=== PATIENT | male | born 1955 | race Caucasian/White ===

== ENCOUNTER 2020-12-14 09:00 | Inpatient (IN) ==
[2020-12-14] MEDS ORDERED: GLUCAGON 1 MG VIAL IM PRN (10:18)
[2020-12-14] MEDS ORDERED: DEXTROSE 50% 25 GM/50 ML VIAL IV PRN (10:18)
[2020-12-14 11:10] LABS: Basophils % 0.3 % (0.0-0.8); Eosinophils # 0.2 10*3/uL (0.0-0.87); Eosinophils % 3.1 % (0.00-10.9); Hematocrit 40.9 VOL% (42.0-52.0); Hemoglobin 13.5 GM/DL (14.0-18.0); Immature Granulocytes % 0.3 %; Immature Granulocytes Absolute 0.02 #; Lymphocytes # 1.2 10*3/uL (1.4-4.0); Lymphocytes % 17.7 % (21.2-54.2); Mean Corpuscular Volume 92.3 FL (87-102); Mean Platelet Volume 11.1 FL (9.6-12.0); Monocytes % 9.1 % (1.7-12.7); Neutrophils % 69.5 % (38.7-73.9); Platelet Count 255 T/CUMM (130-400); Red Blood Count 4.43 MC/CUMM (3.8-5.5); White Blood Count 6.7 T/CUMM (4-12)
[2020-12-14 11:31] LABS: Albumin 3.5 G/DL (3.4-5.0); Bilirubin,Total 0.4 MG/DL (0.2-1.0); Calcium 8.9 MG/DL (8.5-10.1); Osmolality,Calculated 279.5 MOS/KG (273-304); Potassium 3.3 MMOL/L (3.5-5.1); Total Protein 7.1 G/DL (6.4-8.2)
[2020-12-14] MEDS: SODIUM CHLORIDE 0.9% 1,000 ML IV SCH (11:45)
[2020-12-14 13:04] LABS: ABG Base Excess 4.8 MMOL/L (-2.5-2.5); ABG HCO3 28.6 MMOL/L (20-26); ABG Oxygen Saturation 93.9 % (95-100); ABG PCO2 39.8 MM HG (35-48); ABG PH 7.475 (7.35-7.45); ABG PO2 70.4 MM HG (80-95); ABG TCO2 29.9 MMOL/L (23-27)
[2020-12-14] MEDS ORDERED: NITROGLYCERIN SL 0.4 MG TABLET SL PRN (13:59)
[2020-12-14] MEDS ORDERED: CLORAZEPATE 3.75 MG TABLET PO PRN (13:59)
[2020-12-14] MEDS ORDERED: MORPHINE 4 MG/1 ML VIAL IV PRN (13:59)
[2020-12-14] MEDS ORDERED: ZALEPLON 5 MG CAPSULE PO PRN (14:04)
[2020-12-14] MEDS: CHLORHEXIDINE 4% SOLN 118 ML BOTTLE TOP SCH ×2 (15:31→20:36)
[2020-12-14] MEDS: CHLORHEXIDINE 0.12% ORAL RINSE 60 ML BOTTLE SWISH/SPIT SCH ×2 (15:31→20:36)
[2020-12-15] MEDS ORDERED: PAPAVERINE 60 MG/2 ML VIAL ONE (04:22)
[2020-12-15] MEDS ORDERED: VANCOMYCIN 1,000 MG VIAL ONE (04:23)
[2020-12-15] MEDS ORDERED: VANCOMYCIN 500 MG VIAL ONE (04:23)
[2020-12-15] MEDS ORDERED: CEFUROXIME INJ 1,500 MG in SODIUM CHLORIDE 0.9% 100 ML IV ONE (05:00)
[2020-12-15] MEDS: CHLORHEXIDINE 0.12% ORAL RINSE 60 ML BOTTLE SWISH/SPIT SCH ×3 (05:19→20:19)
[2020-12-15] MEDS: CHLORHEXIDINE 4% SOLN 118 ML BOTTLE TOP SCH ×2 (05:19→13:16)
[2020-12-15] MEDS ORDERED: MIDAZOLAM 10 MG/2 ML VIAL ONE ×2 (05:33→09:07)
[2020-12-15] MEDS ORDERED: SUFentanil 250 MCG/5 ML AMP ONE (05:34)
[2020-12-15] MEDS ORDERED: LACTATED RINGERS 1,000 ML IV ONE (05:46)
[2020-12-15] MEDS ORDERED: SODIUM CHLORIDE 0.9% 1,000 ML IV ONE (05:46)
[2020-12-15] MEDS ORDERED: SODIUM CHLORIDE 0.9% 250 ML IV ONE (05:46)
[2020-12-15] MEDS ORDERED: VECURONIUM 10 MG VIAL IV ONE ×4 (05:47→10:52)
[2020-12-15] MEDS ORDERED: ETOMIDATE 40 MG/20 ML VIAL IV ONE (05:47)
[2020-12-15] MEDS ORDERED: CALCIUM CHLORIDE 1,000 MG/10 ML VIAL IV ONE (05:47)
[2020-12-15] MEDS ORDERED: PHENYLEPHRINE 1 MG/10 ML SYRINGE IV ONE (05:48)
[2020-12-15] MEDS ORDERED: AMINOCAPROIC ACID 5,000 MG/20 ML VIAL ONE ×4 (05:48)
[2020-12-15] MEDS ORDERED: PHENYLEPHRINE DRIP 20 MG/250 ML PREMIX IV ONE (05:48)
[2020-12-15] MEDS ORDERED: HEPARIN/NACL 0.9% 2 UNITS/ML 500 ML IV ONE (05:48)
[2020-12-15] MEDS ORDERED: ePHEDrine 50 MG/ML VIAL ONE (07:42)
[2020-12-15] MEDS ORDERED: SODIUM BICARBONATE 50 MEQ/50 ML VIAL IV ONE ×2 (07:59→11:43)
[2020-12-15] MEDS ORDERED: PHENYLEPHRINE DRIP 40 MG/250 ML PREMIX IV ONE (07:59)
[2020-12-15] MEDS ORDERED: NITROPRUSSIDE 50 MG/2 ML VIAL ONE (07:59)
[2020-12-15] MEDS ORDERED: POTASSIUM CHLORIDE RIDER 100 ML IV ONE (07:59)
[2020-12-15] MEDS ORDERED: CALCIUM CHLORIDE 1,000 MG/10 ML SYRINGE IV ONE (08:00)
[2020-12-15] MEDS ORDERED: ALBUMIN 5% 12.5 GM/250 ML VIAL IV ONE (08:00)
[2020-12-15 08:12] LABS: ABG Base Excess 2.2 MMOL/L (-2.5-2.5); ABG HCO3 26.7 MMOL/L (20-26); ABG Oxygen Saturation 99.1 % (95-100); ABG PCO2 41.2 MM HG (35-48); ABG PH 7.429 (7.35-7.45); ABG TCO2 27.9 MMOL/L (23-27); Glucose Heart Surgery 121 MG/DL (74-106); Hemoglobin Heart Surgery 12.7 G/DL (14.0-18.0); Ionized Calcium Arterial 1.05 MMOL/L (1.21-1.46); PCO2 Patient Temp Arterial 41.2 MMHG; PH Patient Temp Arterial 7.429; Patient Temperature 37 CELCIUS; Potassium Heart/CVR 3.2 MMOL/L (3.5-5.1); Sodium Heart/CVR 138 MMOL/L (135-145)
[2020-12-15 08:24] LABS: Bilirubin,Urine Negative (Negative); Blood, Urine Negative (Negative); Glucose,Urine (UA) Negative (Negative); Ketones,Urine Negative (Negative); Mucus,Urine Occasional /LPF (Occasional); Nitrite,Urine Negative (Negative); Protein,Urine Negative; RBC,Urine 2 /HPF (0-4); Squamous Epithelial Cell,Urine Occasional /HPF (0-10); Urine Appearance CLEAR (Clear); Urine Color Yellow (Yellow); Urine Specific Gravity 1.013 (1.001-1.035); Urine Urobilinogen < 2.0 EU/DL (0.2-1.0); WBC,Urine 1 /HPF (0-6)
[2020-12-15 09:39] LABS: Hematocrit Heart Surgery 30.8 PERCENT (42-52); PCO2 Patient Temp Venous 39.6 MM HG; PH Patient Temp Venous 7.462; PO2 Patient Temp Venous 37.9 MM HG; Potassium Heart/CVR 3.4 MMOL/L (3.5-5.1); VBG Base Excess 4.3 MEQ/L (0-4); VBG HCO3 27.9 MEQ/L (24-28); VBG Oxygen Saturation 76.4 %; VBG PCO2 41.6 MMHG (41-51); VBG PH 7.447; VBG PO2 40.6 MMHG (17-40); VBG Total CO2 26.2 MMOL/L
[2020-12-15 10:13] LABS: Hemoglobin Heart Surgery 10.2 G/DL (14.0-18.0); PCO2 Patient Temp Venous 33.8 MM HG; PH Patient Temp Venous 7.549; PO2 Patient Temp Venous 35.3 MM HG; Potassium Heart/CVR 3.5 MMOL/L (3.5-5.1); VBG HCO3 29.6 MEQ/L (24-28); VBG Oxygen Saturation 79.8 %; VBG PCO2 38.5 MMHG (41-51); VBG PH 7.503; VBG PO2 43.6 MMHG (17-40); VBG Total CO2 30.7 MMOL/L
[2020-12-15 10:40] LABS: Hematocrit Heart Surgery 31.9 PERCENT (42-52); Hemoglobin Heart Surgery 10.3 G/DL (14.0-18.0); PCO2 Patient Temp Venous 32.1 MM HG; PH Patient Temp Venous 7.536; PO2 Patient Temp Venous 35.1 MM HG; Potassium Heart/CVR 3.8 MMOL/L (3.5-5.1); VBG Base Excess 4.8 MEQ/L (0-4); VBG HCO3 28.5 MEQ/L (24-28); VBG Oxygen Saturation 81.6 %; VBG PCO2 37.1 MMHG (41-51); VBG PH 7.49; VBG PO2 43.3 MMHG (17-40); VBG Total CO2 25.6 MMOL/L
[2020-12-15] MEDS ORDERED: ESMOLOL 100 MG/10 ML VIAL IV ONE (10:52)
[2020-12-15] MEDS ORDERED: SEVOFLURANE 1 UNIT/15 MINUTE INH ONE (10:52)
[2020-12-15] MEDS ORDERED: THROMBIN TOPICAL (RECOMBINANT) 5,000 UNIT VIAL TOP ONE (11:38)
[2020-12-15] MEDS ORDERED: methylPREDNISolone SOD SUC 1,000 MG/8 ML VIAL ONE (11:42)
[2020-12-15] MEDS ORDERED: MAGNESIUM SULFATE 5 GM/10 ML VIAL IV ONE (11:42)
[2020-12-15] MEDS ORDERED: ALBUMIN 25% 25 GM/100 ML VIAL IV ONE (11:42)
[2020-12-15] MEDS ORDERED: MANNITOL 100 GM/500 ML BAG IV ONE (11:42)
[2020-12-15] MEDS ORDERED: DEXTROSE 5% KCL 20 MEQ 40 MEQ/2,000 ML BAG IV ONE (11:42)
[2020-12-15] MEDS ORDERED: LIDOCAINE 2% 5 ML VIAL ONE (11:42)
[2020-12-15] MEDS ORDERED: PROTAMINE SULFATE 50 MG/5 ML VIAL IV ONE (11:43)
[2020-12-15] MEDS ORDERED: FUROSEMIDE 20 MG/2 ML VIAL ONE (11:43)
[2020-12-15] MEDS ORDERED: HEPARIN 10,000 UNIT/10 ML VIAL ONE (11:43)
[2020-12-15] MEDS ORDERED: PROTAMINE SULFATE 250 MG/25 ML VIAL IV ONE (11:43)
[2020-12-15 11:51] LABS: ABG Base Excess 1.5 MMOL/L (-2.5-2.5); ABG HCO3 25.7 MMOL/L (20-26); ABG Oxygen Saturation 99.6 % (95-100); ABG PCO2 38.8 MM HG (35-48); Glucose Heart Surgery 215 MG/DL (74-106); Hematocrit Heart Surgery 33.8 PERCENT (42-52); Ionized Calcium Arterial 1.11 MMOL/L (1.21-1.46); PCO2 Patient Temp Arterial 38.8 MMHG; Patient Temperature 37 CELCIUS; Potassium Heart/CVR 3.1 MMOL/L (3.5-5.1); Sodium Heart/CVR 139 MMOL/L (135-145)
[2020-12-15] MEDS ORDERED: MORPHINE 10 MG/1 ML VIAL IV PRN (12:05)
[2020-12-15] MEDS ORDERED: MIDAZOLAM 2 MG/2 ML VIAL IV PRN (12:05)
[2020-12-15] MEDS ORDERED: MAGNESIUM SULF RIDER 2 GM in PREMIX 1 EACH IV PRN (12:05)
[2020-12-15] MEDS ORDERED: INSULIN REGULAR 100 UNIT/ML IV PRN (12:05)
[2020-12-15] MEDS ORDERED: CALCIUM CHLORIDE 1,000 MG/10 ML SYRINGE IV PRN (12:05)
[2020-12-15] MEDS ORDERED: MAGNESIUM SULF RIDER 4 GM in PREMIX 1 EACH IV PRN (12:05)
[2020-12-15] MEDS ORDERED: PHENYLEPHRINE DRIP 40 MG/250 ML PREMIX IV PRN (12:05)
[2020-12-15] MEDS ORDERED: SODIUM CHLORIDE 0.45% 1,000 ML IV SCH ×2 (12:05)
[2020-12-15] MEDS ORDERED: MIDAZOLAM 10 MG/2 ML VIAL IV PRN (12:05)
[2020-12-15] MEDS ORDERED: DEXTROSE 50% 25 GM/50 ML VIAL IV PRN ×2 (12:05)
[2020-12-15] MEDS ORDERED: INSULIN REGULAR DRIP 100 ML IV SCH (12:05)
[2020-12-15] MEDS ORDERED: ONDANSETRON 4 MG/2 ML VIAL IV PRN (12:05)
[2020-12-15] MEDS ORDERED: INSULIN REGULAR 100 UNIT/ML IV ONE (12:05)
[2020-12-15] MEDS ORDERED: NITROPRUSSIDE 100 MG in DEXTROSE 5% 250 ML IV PRN (12:05)
[2020-12-15] MEDS ORDERED: CHLORHEXIDINE 4% SOLN 118 ML BOTTLE TOP PRN (12:05)
[2020-12-15] MEDS ORDERED: LACTATED RINGERS 250 ML IV PRN (12:05)
[2020-12-15] MEDS ORDERED: VECURONIUM 10 MG VIAL IV PRN ×2 (12:05)
[2020-12-15] MEDS ORDERED: ACETAMINOPHEN 650 MG SUPP RECTAL PRN (12:05)
[2020-12-15 13:00] LABS: ABG Base Excess 1.2 MMOL/L (-2.5-2.5); ABG HCO3 25.5 MMOL/L (20-26); ABG Oxygen Saturation 97.7 % (95-100); ABG PCO2 38.1 MM HG (35-48); ABG PH 7.431 (7.35-7.45); ABG TCO2 22.4 MMOL/L (23-27); Glucose Heart Surgery 175 MG/DL (74-106); Hematocrit Heart Surgery 36.5 PERCENT (42-52); Hemoglobin Heart Surgery 11.9 G/DL (14.0-18.0); Potassium Heart/CVR 3.2 MMOL/L (3.5-5.1)
[2020-12-15 13:11] LABS: Basophils % 0.2 % (0.0-0.8); Eosinophils % 0.2 % (0.00-10.9); Hematocrit 35.2 VOL% (42.0-52.0); Hemoglobin 11.7 GM/DL (14.0-18.0); Immature Granulocytes % 0.9 %; Immature Granulocytes Absolute 0.17 #; Lymphocytes # 0.9 10*3/uL (1.4-4.0); Lymphocytes % 4.4 % (21.2-54.2); Mean Corpuscular HGB Conc 33.2 GM/DL (32-36); Mean Corpuscular Volume 92.1 FL (87-102); Mean Platelet Volume 11.5 FL (9.6-12.0); Monocytes % 3.1 % (1.7-12.7); Neutrophils % 91.2 % (38.7-73.9); Platelet Count 224 T/CUMM (130-400); Red Blood Count 3.82 MC/CUMM (3.8-5.5); Red Cell Distribution Width 13.1 % (9.3-17.3); White Blood Count 19.2 T/CUMM (4-12)
[2020-12-15] MEDS: POTASSIUM CHLORIDE RIDER 20 MEQ in PREMIX 1 EACH IV PRN ×6 (13:11→21:59)
[2020-12-15] MEDS: SODIUM CHLORIDE 0.9% 1,000 ML IV SCH (13:16)
[2020-12-15 13:22] LABS: CKMB % 12.4 %
[2020-12-15 13:23] LABS: Troponin I 8.64 NG/ML (0.00-0.045)
[2020-12-15 13:27] LABS: INR 1.2; PT Patient Result 12.4 SECS (9.8-11.9); Partial Thromboplastin Time 25.2 SECS (23.9-33.8)
[2020-12-15 13:35] LABS: Band Neutrophils 8 % (0-10); Lymphocytes 3 % (20-55); Segmented Neutrophils 88 % (50-85); Total Cells Counted 100
[2020-12-15 13:36] LABS: Macrocytosis Slight
[2020-12-15 13:37] LABS: Platelet Estimate Normal
[2020-12-15 13:55] LABS: Albumin 3.2 G/DL (3.4-5.0); Bilirubin,Total 0.9 MG/DL (0.2-1.0); Calcium 8.6 MG/DL (8.5-10.1); Osmolality,Calculated 283.4 MOS/KG (273-304); Potassium 3.2 MMOL/L (3.5-5.1); Total Protein 6.1 G/DL (6.4-8.2)
[2020-12-15 14:46] LABS: ABG Base Excess 1.3 MMOL/L (-2.5-2.5); ABG HCO3 25.6 MMOL/L (20-26); ABG Oxygen Saturation 97.9 % (95-100); ABG PCO2 36.8 MM HG (35-48); ABG PH 7.443 (7.35-7.45); ABG PO2 93.1 MM HG (80-95); ABG TCO2 22.4 MMOL/L (23-27); Glucose Heart Surgery 141 MG/DL (74-106); Hematocrit Heart Surgery 35.2 PERCENT (42-52); Hemoglobin Heart Surgery 11.4 G/DL (14.0-18.0); Potassium Heart/CVR 3.6 MMOL/L (3.5-5.1)
[2020-12-15] MEDS: POTASSIUM CHLORIDE RIDER 10 MEQ in PREMIX 1 EACH IV PRN ×2 (15:24→22:39)
[2020-12-15] MEDS ORDERED: KETOROLAC 30 MG/1 ML VIAL IV SCH (16:00)
[2020-12-15] MEDS: ALBUMIN 5% 12.5 GM in PREMIX 1 EACH IV PRN ×2 (17:23→17:38)
[2020-12-15] MEDS ORDERED: LACTATED RINGERS 1,000 ML IV PRN (17:53)
[2020-12-15] MEDS ORDERED: FUROSEMIDE 40 MG/4 ML VIAL ONE (18:06)
[2020-12-15] MEDS ORDERED: FUROSEMIDE 40 MG/4 ML VIAL IV ONE (18:06)
[2020-12-15] MEDS ORDERED: DOBUTamine 500 MG/250 ML PREMIX IV ONE (18:06)
[2020-12-15 18:15] LABS: ABG Base Excess 0.7 MMOL/L (-2.5-2.5); ABG Oxygen Saturation 95.6 % (95-100); ABG PCO2 44.9 MM HG (35-48); ABG PH 7.374 (7.35-7.45); ABG PO2 80.3 MM HG (80-95); ABG TCO2 23.8 MMOL/L (23-27); Glucose Heart Surgery 128 MG/DL (74-106); Hematocrit Heart Surgery 31.7 PERCENT (42-52); Hemoglobin Heart Surgery 10.3 G/DL (14.0-18.0); Potassium Heart/CVR 3.4 MMOL/L (3.5-5.1)
[2020-12-15] MEDS ORDERED: DOBUTamine 500 MG/250 ML PREMIX IV SCH (18:30)
[2020-12-15 18:34] LABS: Glucose Heart Surgery 126 MG/DL (74-106); Hemoglobin Heart Surgery 11.4 G/DL (14.0-18.0); Potassium Heart/CVR 3.3 MMOL/L (3.5-5.1); Sodium Heart/CVR 140 MMOL/L (135-145); VBG Base Excess 0.7 MEQ/L (0-4); VBG HCO3 25.3 MEQ/L (24-28); VBG Oxygen Saturation 83.1 %; VBG PCO2 40.2 MMHG (41-51); VBG PH 7.416; VBG PO2 49.8 MMHG (17-40); VBG Total CO2 26.5 MMOL/L
[2020-12-15] MEDS ORDERED: NITROGLYCERIN DRIP 50 MG/250 ML BOTTLE IV ONE (18:42)
[2020-12-15] MEDS ORDERED: NITROGLYCERIN DRIP 50 MG/250 ML BOTTLE IV PRN (18:43)
[2020-12-15] MEDS: MORPHINE 4 MG/1 ML VIAL IV PRN (19:26)
[2020-12-15 19:37] LABS: ABG Base Excess 0.2 MMOL/L (-2.5-2.5); ABG HCO3 24.6 MMOL/L (20-26); ABG Oxygen Saturation 98.2 % (95-100); ABG PCO2 40.3 MM HG (35-48); ABG TCO2 22.4 MMOL/L (23-27); Glucose Heart Surgery 163 MG/DL (74-106); Hematocrit Heart Surgery 34.1 PERCENT (42-52); Hemoglobin Heart Surgery 11.1 G/DL (14.0-18.0); Potassium Heart/CVR 3.7 MMOL/L (3.5-5.1)
[2020-12-15] MEDS: CEFUROXIME INJ 1,500 MG in SODIUM CHLORIDE 0.9% 100 ML IV SCH (20:20)
[2020-12-15 20:23] LABS: ABG Base Excess 0.4 MMOL/L (-2.5-2.5); ABG HCO3 24.8 MMOL/L (20-26); ABG Oxygen Saturation 97.3 % (95-100); ABG PCO2 39.9 MM HG (35-48); ABG PH 7.406 (7.35-7.45); ABG PO2 94.1 MM HG (80-95); ABG TCO2 22.5 MMOL/L (23-27); Glucose Heart Surgery 170 MG/DL (74-106); Hematocrit Heart Surgery 33.7 PERCENT (42-52); Hemoglobin Heart Surgery 10.9 G/DL (14.0-18.0); Potassium Heart/CVR 3.5 MMOL/L (3.5-5.1)
[2020-12-15 21:07] LABS: CKMB % 10.2 %
[2020-12-15 21:08] LABS: Troponin I 5.09 NG/ML (0.00-0.045)
[2020-12-15 21:48] LABS: ABG Base Excess 0.9 MMOL/L (-2.5-2.5); ABG HCO3 25.2 MMOL/L (20-26); ABG Oxygen Saturation 98.6 % (95-100); ABG PH 7.428 (7.35-7.45); ABG TCO2 22.6 MMOL/L (23-27); Glucose Heart Surgery 159 MG/DL (74-106); Hematocrit Heart Surgery 32.2 PERCENT (42-52); Hemoglobin Heart Surgery 10.4 G/DL (14.0-18.0); Potassium Heart/CVR 3.4 MMOL/L (3.5-5.1)
[2020-12-15 22:39] LABS: ABG Base Excess 1.6 MMOL/L (-2.5-2.5); ABG HCO3 25.8 MMOL/L (20-26); ABG Oxygen Saturation 98.7 % (95-100); ABG PCO2 36.9 MM HG (35-48); ABG PH 7.447 (7.35-7.45); Glucose Heart Surgery 148 MG/DL (74-106); Hematocrit Heart Surgery 31.8 PERCENT (42-52); Hemoglobin Heart Surgery 10.3 G/DL (14.0-18.0); Potassium Heart/CVR 3.8 MMOL/L (3.5-5.1)
[2020-12-15 23:37] LABS: ABG HCO3 26.2 MMOL/L (20-26); ABG Oxygen Saturation 96.4 % (95-100); ABG PCO2 37.4 MM HG (35-48); ABG PH 7.448 (7.35-7.45); ABG PO2 79.4 MM HG (80-95); ABG TCO2 23.3 MMOL/L (23-27); Glucose Heart Surgery 141 MG/DL (74-106); Hematocrit Heart Surgery 32.8 PERCENT (42-52); Hemoglobin Heart Surgery 10.6 G/DL (14.0-18.0); Potassium Heart/CVR 3.7 MMOL/L (3.5-5.1)
[2020-12-16 00:30] LABS: ABG Base Excess 2.1 MMOL/L (-2.5-2.5); ABG HCO3 26.2 MMOL/L (20-26); ABG Oxygen Saturation 96.2 % (95-100); ABG PCO2 35.4 MM HG (35-48); ABG PH 7.466 (7.35-7.45); Glucose Heart Surgery 137 MG/DL (74-106); Hematocrit Heart Surgery 32.8 PERCENT (42-52); Hemoglobin Heart Surgery 10.6 G/DL (14.0-18.0); Potassium Heart/CVR 3.6 MMOL/L (3.5-5.1)
[2020-12-16] MEDS ORDERED: FUROSEMIDE 40 MG/4 ML VIAL IV ONE (01:27)
[2020-12-16] MEDS: MORPHINE 4 MG/1 ML VIAL IV PRN (01:35)
[2020-12-16 01:37] LABS: ABG Base Excess 2.1 MMOL/L (-2.5-2.5); ABG HCO3 26.3 MMOL/L (20-26); ABG Oxygen Saturation 95.6 % (95-100); ABG PH 7.415 (7.35-7.45); ABG PO2 76.6 MM HG (80-95); ABG TCO2 24.3 MMOL/L (23-27); Glucose Heart Surgery 146 MG/DL (74-106); Hematocrit Heart Surgery 32.7 PERCENT (42-52); Hemoglobin Heart Surgery 10.6 G/DL (14.0-18.0); Potassium Heart/CVR 3.5 MMOL/L (3.5-5.1)
[2020-12-16] MEDS: POTASSIUM CHLORIDE RIDER 20 MEQ in PREMIX 1 EACH IV PRN ×2 (01:45→05:21)
[2020-12-16] MEDS: POTASSIUM CHLORIDE RIDER 10 MEQ in PREMIX 1 EACH IV PRN (02:25)
[2020-12-16 02:52] LABS: ABG Base Excess 2.2 MMOL/L (-2.5-2.5); ABG HCO3 26.3 MMOL/L (20-26); ABG PCO2 41.5 MM HG (35-48); ABG PH 7.419 (7.35-7.45); ABG PO2 73.2 MM HG (80-95); ABG TCO2 24.3 MMOL/L (23-27); Glucose Heart Surgery 148 MG/DL (74-106); Hematocrit Heart Surgery 31.9 PERCENT (42-52); Hemoglobin Heart Surgery 10.3 G/DL (14.0-18.0); Potassium Heart/CVR 3.7 MMOL/L (3.5-5.1)
[2020-12-16] MEDS ORDERED: KETOROLAC 30 MG/1 ML VIAL IV ONE (04:12)
[2020-12-16 04:13] LABS: ABG HCO3 26.5 MMOL/L (20-26); ABG PCO2 40.6 MM HG (35-48); ABG PH 7.432 (7.35-7.45); ABG PO2 79.3 MM HG (80-95); ABG TCO2 27.7 MMOL/L (23-27); Glucose Heart Surgery 140 MG/DL (74-106); Hemoglobin Heart Surgery 10.7 G/DL (14.0-18.0); Potassium Heart/CVR 3.6 MMOL/L (3.5-5.1)
[2020-12-16 04:14] LABS: Basophils % 0.1 % (0.0-0.8); Hematocrit 31.4 VOL% (42.0-52.0); Hemoglobin 10.2 GM/DL (14.0-18.0); Immature Granulocytes % 0.6 %; Immature Granulocytes Absolute 0.11 #; Lymphocytes # 0.6 10*3/uL (1.4-4.0); Lymphocytes % 3.5 % (21.2-54.2); Mean Corpuscular HGB Conc 32.5 GM/DL (32-36); Mean Corpuscular Volume 94.6 FL (87-102); Mean Platelet Volume 11.4 FL (9.6-12.0); Neutrophils % 91.8 % (38.7-73.9); Platelet Count 211 T/CUMM (130-400); Red Blood Count 3.32 MC/CUMM (3.8-5.5); Red Cell Distribution Width 13.4 % (9.3-17.3); White Blood Count 17.6 T/CUMM (4-12)
[2020-12-16 04:40] LABS: Lymphocytes 1 % (20-55); Segmented Neutrophils 97 % (50-85); Total Cells Counted 100
[2020-12-16 04:41] LABS: Platelet Estimate Normal
[2020-12-16 04:43] LABS: CKMB % 9.9 %
[2020-12-16 04:46] LABS: Albumin 3.5 G/DL (3.4-5.0); Bilirubin,Direct 0.2 MG/DL (0.0-0.20); Bilirubin,Total 0.6 MG/DL (0.2-1.0); Calcium 7.3 MG/DL (8.5-10.1); Osmolality,Calculated 285.3 MOS/KG (273-304); Potassium 3.7 MMOL/L (3.5-5.1); Troponin I 4.69 NG/ML (0.00-0.045)
[2020-12-16] MEDS: ASPIRIN EC 325 MG TABLET PO SCH (08:37)
[2020-12-16] MEDS: CEFUROXIME INJ 1,500 MG in SODIUM CHLORIDE 0.9% 100 ML IV SCH ×2 (08:37→21:08)
[2020-12-16] MEDS: ASCORBIC ACID 500 MG TABLET PO SCH ×2 (08:38→21:06)
[2020-12-16] MEDS: CHLORHEXIDINE 0.12% ORAL RINSE 60 ML BOTTLE SWISH/SPIT SCH ×3 (08:38→21:08)
[2020-12-16] MEDS: ALBUMIN 5% 12.5 GM in PREMIX 1 EACH IV PRN (09:19)
[2020-12-16] MEDS ORDERED: ONDANSETRON 4 MG/2 ML VIAL IV PRN (09:23)
[2020-12-16] MEDS ORDERED: ACETAMINOPHEN 325 MG TABLET PO PRN (09:23)
[2020-12-16] MEDS ORDERED: MAGNESIUM SULF RIDER 4 GM in PREMIX 1 EACH IV PRN (09:23)
[2020-12-16] MEDS ORDERED: MAGNESIUM SULF RIDER 2 GM in PREMIX 1 EACH IV PRN (09:23)
[2020-12-16] MEDS ORDERED: SODIUM CHLOR 0.45% KCL 20 MEQ 20 MEQ/1,000 ML BAG IV SCH (09:23)
[2020-12-16] MEDS ORDERED: MAGNESIUM HYDROXIDE SUSP 30 ML UDCUP PO PRN (09:23)
[2020-12-16] MEDS ORDERED: GLUCAGON 1 MG VIAL IM PRN (09:23)
[2020-12-16] MEDS ORDERED: ALUMINUM/MAGNES/SIMETH MAX STR 30 ML UDCUP PO PRN (09:23)
[2020-12-16] MEDS ORDERED: DEXTROSE 50% 25 GM/50 ML VIAL IV PRN (09:23)
[2020-12-16] MEDS: FERROUS SULFATE 325 MG TABLET PO SCH (10:06)
[2020-12-16] MEDS: DOCUSATE SODIUM 100 MG CAPSULE PO SCH (10:06)
[2020-12-16] MEDS: PANTOPRAZOLE 40 MG TABLET PO SCH (10:23)
[2020-12-16] MEDS: INSULIN REGULAR 100 UNIT/ML SUBCUT SCH ×3 (12:50→22:56)
[2020-12-16 13:24] LABS: Troponin I 3.29 NG/ML (0.00-0.045)
[2020-12-16] MEDS: oxyCODONE/ACETAMINOPHEN 5-325 MG TABLET PO PRN ×2 (16:04→21:07)
[2020-12-17] MEDS ORDERED: FUROSEMIDE 40 MG/4 ML VIAL IV ONE ×2 (06:00→08:47)
[2020-12-17 06:13] LABS: Hematocrit 28.6 VOL% (42.0-52.0); Immature Granulocytes % 0.7 %; Immature Granulocytes Absolute 0.14 #; Lymphocytes # 1.1 10*3/uL (1.4-4.0); Lymphocytes % 5.5 % (21.2-54.2); Mean Corpuscular HGB Conc 31.5 GM/DL (32-36); Mean Corpuscular Volume 97.6 FL (87-102); Mean Platelet Volume 12.6 FL (9.6-12.0); Monocytes % 6.9 % (1.7-12.7); Neutrophils % 86.9 % (38.7-73.9); Platelet Count 161 T/CUMM (130-400); Red Blood Count 2.93 MC/CUMM (3.8-5.5)
[2020-12-17 06:36] LABS: Albumin 3.1 G/DL (3.4-5.0); Bilirubin,Direct 0.14 MG/DL (0.0-0.20); Bilirubin,Total 0.5 MG/DL (0.2-1.0); Calcium 7.2 MG/DL (8.5-10.1); Osmolality,Calculated 290.3 MOS/KG (273-304); Total Protein 5.8 G/DL (6.4-8.2)
[2020-12-17 06:39] LABS: Albumin 3.1 G/DL (3.4-5.0); Bilirubin,Direct 0.13 MG/DL (0.0-0.20); Bilirubin,Indirect 1.3 MG/DL (0.0-1.0); Bilirubin,Total 1.4 MG/DL (0.2-1.0); CKMB % 1.7 %; Total Protein 5.4 G/DL (6.4-8.2)
[2020-12-17 06:40] LABS: Troponin I 2.46 NG/ML (0.00-0.045)
[2020-12-17 07:21] LABS: Hypochromasia Slight; Microcytosis Slight
[2020-12-17] MEDS: INSULIN REGULAR 100 UNIT/ML SUBCUT SCH ×4 (07:45→21:51)
[2020-12-17] MEDS: ASCORBIC ACID 500 MG TABLET PO SCH ×2 (08:56→20:40)
[2020-12-17] MEDS: PANTOPRAZOLE 40 MG TABLET PO SCH (08:56)
[2020-12-17] MEDS: FERROUS SULFATE 325 MG TABLET PO SCH (08:57)
[2020-12-17] MEDS: DOCUSATE SODIUM 100 MG CAPSULE PO SCH (08:57)
[2020-12-17] MEDS: CHLORHEXIDINE 0.12% ORAL RINSE 60 ML BOTTLE SWISH/SPIT SCH ×2 (08:57→20:41)
[2020-12-17] MEDS: ASPIRIN EC 325 MG TABLET PO SCH (08:57)
[2020-12-17] MEDS: ALBUTEROL/IPRATROPIUM 3 ML NEB RESP TX SCH ×4 (11:20→23:22)
[2020-12-17] MEDS: carvediloL 3.125 MG TABLET PO SCH ×2 (11:27→20:41)
[2020-12-17] MEDS: KETOROLAC 30 MG/1 ML VIAL IV PRN (11:28)
[2020-12-18] MEDS: ALBUTEROL/IPRATROPIUM 3 ML NEB RESP TX SCH ×5 (03:44→19:50)
[2020-12-18] MEDS: KETOROLAC 30 MG/1 ML VIAL IV PRN ×3 (05:14→20:48)
[2020-12-18 05:55] LABS: Basophils % 0.2 % (0.0-0.8); Eosinophils % 0.1 % (0.00-10.9); Hematocrit 27.7 VOL% (42.0-52.0); Hemoglobin 8.9 GM/DL (14.0-18.0); Immature Granulocytes % 0.7 %; Immature Granulocytes Absolute 0.09 #; Lymphocytes # 1.2 10*3/uL (1.4-4.0); Lymphocytes % 9.3 % (21.2-54.2); Mean Corpuscular HGB Conc 32.1 GM/DL (32-36); Mean Corpuscular Volume 95.2 FL (87-102); Mean Platelet Volume 12.3 FL (9.6-12.0); Neutrophils % 81.7 % (38.7-73.9); Platelet Count 139 T/CUMM (130-400); Red Blood Count 2.91 MC/CUMM (3.8-5.5); Red Cell Distribution Width 13.9 % (9.3-17.3); White Blood Count 12.6 T/CUMM (4-12)
[2020-12-18 06:16] LABS: Alanine Aminotransferase 23 U/L (16-61); Albumin 2.9 G/DL (3.4-5.0); Alkaline Phosphatase 42 U/L (45-117); Aspartate Amino Transferase 26 U/L (0-37); Bilirubin,Indirect 0.5 MG/DL (0.0-1.0); Total Protein 5.8 G/DL (6.4-8.2)
[2020-12-18 06:17] LABS: Albumin 2.9 G/DL (3.4-5.0); Bilirubin,Direct 0.15 MG/DL (0.0-0.20); Bilirubin,Total 0.8 MG/DL (0.2-1.0); Calcium 7.2 MG/DL (8.5-10.1); Potassium 3.7 MMOL/L (3.5-5.1); Total Protein 5.4 G/DL (6.4-8.2)
[2020-12-18] MEDS: INSULIN REGULAR 100 UNIT/ML SUBCUT SCH ×4 (07:34→22:16)
[2020-12-18] MEDS: ASCORBIC ACID 500 MG TABLET PO SCH ×2 (08:42→20:49)
[2020-12-18] MEDS: ASPIRIN EC 325 MG TABLET PO SCH (08:42)
[2020-12-18] MEDS: POTASSIUM CHLORIDE 20 MEQ TABLET PO PRN ×2 (08:42→09:24)
[2020-12-18] MEDS: FERROUS SULFATE 325 MG TABLET PO SCH (08:42)
[2020-12-18] MEDS: carvediloL 3.125 MG TABLET PO SCH (08:42)
[2020-12-18] MEDS: DOCUSATE SODIUM 100 MG CAPSULE PO SCH (08:42)
[2020-12-18] MEDS: PANTOPRAZOLE 40 MG TABLET PO SCH (08:42)
[2020-12-18] MEDS: CHLORHEXIDINE 0.12% ORAL RINSE 60 ML BOTTLE SWISH/SPIT SCH ×2 (09:23→20:49)
[2020-12-18] MEDS: oxyCODONE/ACETAMINOPHEN 5-325 MG TABLET PO PRN (16:15)
[2020-12-18] MEDS: ZALEPLON 5 MG CAPSULE PO PRN (20:48)
[2020-12-18] MEDS: ATORVASTATIN 40 MG TABLET PO SCH (20:49)
[2020-12-18] MEDS: carvediloL 6.25 MG TABLET PO SCH (20:49)
[2020-12-19] MEDS: ALBUTEROL/IPRATROPIUM 3 ML NEB RESP TX SCH ×6 (00:22→19:42)
[2020-12-19 05:46] LABS: Basophils % 0.2 % (0.0-0.8); Eosinophils # 0.3 10*3/uL (0.0-0.87); Eosinophils % 2.9 % (0.00-10.9); Hematocrit 29.9 VOL% (42.0-52.0); Hemoglobin 9.3 GM/DL (14.0-18.0); Immature Granulocytes % 1.5 %; Immature Granulocytes Absolute 0.14 #; Lymphocytes # 1.6 10*3/uL (1.4-4.0); Lymphocytes % 16.7 % (21.2-54.2); Mean Corpuscular HGB Conc 31.1 GM/DL (32-36); Mean Corpuscular Volume 99.3 FL (87-102); Mean Platelet Volume 11.8 FL (9.6-12.0); Monocytes % 7.5 % (1.7-12.7); Neutrophils % 71.2 % (38.7-73.9); Platelet Count 178 T/CUMM (130-400); Red Blood Count 3.01 MC/CUMM (3.8-5.5); Red Cell Distribution Width 13.5 % (9.3-17.3); White Blood Count 9.5 T/CUMM (4-12)
[2020-12-19 06:10] LABS: Calcium 7.6 MG/DL (8.5-10.1); Osmolality,Calculated 290.1 MOS/KG (273-304); Potassium 3.8 MMOL/L (3.5-5.1)
[2020-12-19 06:11] LABS: Bilirubin,Direct 0.12 MG/DL (0.0-0.20); Bilirubin,Indirect 0.5 MG/DL (0.0-1.0); Bilirubin,Total 0.6 MG/DL (0.2-1.0)
[2020-12-19] MEDS: INSULIN REGULAR 100 UNIT/ML SUBCUT SCH ×4 (08:03→21:29)
[2020-12-19] MEDS: ASPIRIN EC 325 MG TABLET PO SCH (08:39)
[2020-12-19] MEDS: FERROUS SULFATE 325 MG TABLET PO SCH (08:39)
[2020-12-19] MEDS: DOCUSATE SODIUM 100 MG CAPSULE PO SCH (08:39)
[2020-12-19] MEDS: PANTOPRAZOLE 40 MG TABLET PO SCH (08:39)
[2020-12-19] MEDS: ASCORBIC ACID 500 MG TABLET PO SCH ×2 (08:39→21:28)
[2020-12-19] MEDS: carvediloL 6.25 MG TABLET PO SCH ×2 (08:39→21:29)
[2020-12-19] MEDS: CHLORHEXIDINE 0.12% ORAL RINSE 60 ML BOTTLE SWISH/SPIT SCH ×2 (08:39→21:29)
[2020-12-19] MEDS: POTASSIUM CHLORIDE 20 MEQ TABLET PO PRN (08:39)
[2020-12-19] MEDS: oxyCODONE/ACETAMINOPHEN 5-325 MG TABLET PO PRN ×2 (10:53→17:51)
[2020-12-19] MEDS: LOSARTAN 25 MG TABLET PO SCH (12:44)
[2020-12-19] MEDS: ATORVASTATIN 40 MG TABLET PO SCH (21:29)
[2020-12-19] MEDS: ZALEPLON 5 MG CAPSULE PO PRN (21:30)
[2020-12-20] MEDS: ALBUTEROL/IPRATROPIUM 3 ML NEB RESP TX SCH ×4 (00:14→11:12)
[2020-12-20 04:20] LABS: Basophils % 0.2 % (0.0-0.8); Eosinophils # 0.4 10*3/uL (0.0-0.87); Eosinophils % 3.9 % (0.00-10.9); Hematocrit 29.3 VOL% (42.0-52.0); Hemoglobin 9.1 GM/DL (14.0-18.0); Immature Granulocytes Absolute 0.19 #; Lymphocytes # 1.3 10*3/uL (1.4-4.0); Lymphocytes % 13.9 % (21.2-54.2); Mean Corpuscular HGB Conc 31.1 GM/DL (32-36); Mean Corpuscular Volume 98.3 FL (87-102); Mean Platelet Volume 11.8 FL (9.6-12.0); Monocytes % 7.2 % (1.7-12.7); Neutrophils % 72.8 % (38.7-73.9); Platelet Count 200 T/CUMM (130-400); Red Blood Count 2.98 MC/CUMM (3.8-5.5); Red Cell Distribution Width 13.2 % (9.3-17.3); White Blood Count 9.7 T/CUMM (4-12)
[2020-12-20 04:52] LABS: Alanine Aminotransferase 29 U/L (16-61); Albumin 2.8 G/DL (3.4-5.0); Alkaline Phosphatase 48 U/L (45-117); Aspartate Amino Transferase 28 U/L (0-37); Bilirubin,Indirect 1.2 MG/DL (0.0-1.0); Blood Urea Nitrogen 17 MG/DL (7-18); Calcium 7.6 MG/DL (8.5-10.1); Carbon Dioxide 30 MMOL/L (21-32); Estimated Glom Filtration Rate 117 ML/MIN; Glucose 127 MG/DL (74-106); Osmolality,Calculated 282.4 MOS/KG (273-304); Sodium 140 MMOL/L (136-145); Total Protein 5.7 G/DL (6.4-8.2)
[2020-12-20] MEDS: INSULIN REGULAR 100 UNIT/ML SUBCUT SCH ×2 (07:49→11:57)
[2020-12-20] MEDS: PANTOPRAZOLE 40 MG TABLET PO SCH (08:40)
[2020-12-20] MEDS: LOSARTAN 25 MG TABLET PO SCH (08:40)
[2020-12-20] MEDS: ASPIRIN EC 325 MG TABLET PO SCH (08:40)
[2020-12-20] MEDS: DOCUSATE SODIUM 100 MG CAPSULE PO SCH (08:40)
[2020-12-20] MEDS: ASCORBIC ACID 500 MG TABLET PO SCH (08:40)
[2020-12-20] MEDS: oxyCODONE/ACETAMINOPHEN 5-325 MG TABLET PO PRN (08:41)
[2020-12-20] MEDS: FERROUS SULFATE 325 MG TABLET PO SCH (08:41)
[2020-12-20] MEDS: POTASSIUM CHLORIDE 20 MEQ TABLET PO PRN (08:41)
[2020-12-20] MEDS: carvediloL 6.25 MG TABLET PO SCH (08:41)
[2020-12-20] MEDS: CHLORHEXIDINE 0.12% ORAL RINSE 60 ML BOTTLE SWISH/SPIT SCH (08:42)
[2020-12-20 12:00] VITALS: BP 125/79
[2020-12-20] MEDS ORDERED: DEXTROSE 50% 25 GM/50 ML VIAL IV PRN (14:04)
== END 2020-12-20 14:18 | disposition home health service (06) | DRG 236 ==
LOC: N.5E 10:13 → N.CVR 12-15 12:18 → N.TELES 12-16 10:46

== ENCOUNTER 2020-12-21 01:53 | Observation (INO) ==
[2020-12-21 02:18] LABS: Basophils % 0.2 % (0.0-0.8); Eosinophils # 0.4 10*3/uL (0.0-0.87); Eosinophils % 3.3 % (0.00-10.9); Hematocrit 31.5 VOL% (42.0-52.0); Hemoglobin 10.1 GM/DL (14.0-18.0); Immature Granulocytes % 2.3 %; Immature Granulocytes Absolute 0.27 #; Lymphocytes # 1.5 10*3/uL (1.4-4.0); Lymphocytes % 12.8 % (21.2-54.2); Mean Corpuscular HGB Conc 32.1 GM/DL (32-36); Mean Platelet Volume 11.1 FL (9.6-12.0); Monocytes % 6.9 % (1.7-12.7); Neutrophils % 74.5 % (38.7-73.9); Platelet Count 245 T/CUMM (130-400); Red Blood Count 3.28 MC/CUMM (3.8-5.5); Red Cell Distribution Width 13.3 % (9.3-17.3); White Blood Count 11.7 T/CUMM (4-12)
[2020-12-21 02:25] LABS: PT Patient Result 11.1 SECS (9.8-11.9)
[2020-12-21 02:36] LABS: Albumin 2.9 G/DL (3.4-5.0); Bilirubin,Total 1.1 MG/DL (0.2-1.0); Calcium 7.9 MG/DL (8.5-10.1); Osmolality,Calculated 284.1 MOS/KG (273-304); Potassium 4.3 MMOL/L (3.5-5.1); Total Protein 5.8 G/DL (6.4-8.2)
[2020-12-21] MEDS ORDERED: FUROSEMIDE 40 MG/4 ML VIAL IV STA (02:38)
[2020-12-21] MEDS ORDERED: ALBUTEROL/IPRATROPIUM 3 ML NEB RESP TX STA (02:38)
[2020-12-21 02:47] LABS: Eosinophils 3 % (0-10); Lymphocytes 15 % (20-55); Segmented Neutrophils 77 % (50-85); Total Cells Counted 100
[2020-12-21 02:48] LABS: Hypochromasia 1+; Platelet Estimate Normal; Reactive Lymphocytes 1+
[2020-12-21] MEDS ORDERED: MAGNESIUM SULF RIDER 4 GM in PREMIX 1 EACH IV PRN (04:34)
[2020-12-21] MEDS ORDERED: MAGNESIUM SULF RIDER 2 GM in PREMIX 1 EACH IV PRN (04:34)
[2020-12-21] MEDS ORDERED: MORPHINE 4 MG/1 ML VIAL IV PRN (04:34)
[2020-12-21] MEDS ORDERED: ONDANSETRON 4 MG/2 ML VIAL IV PRN (04:34)
[2020-12-21] MEDS: SODIUM CHLORIDE 0.9% 1,000 ML IV SCH (05:00)
[2020-12-21] MEDS: ALBUTEROL/IPRATROPIUM 3 ML NEB RESP TX SCH ×3 (07:25→18:48)
[2020-12-21] MEDS ORDERED: oxyCODONE/ACETAMINOPHEN 5-325 MG TABLET PO PRN (07:54)
[2020-12-21] MEDS ORDERED: ATORVASTATIN 40 MG TABLET PO SCH (09:00)
[2020-12-21] MEDS: hydroCHLOROthiazide 25 MG TABLET PO SCH (09:01)
[2020-12-21] MEDS: ASPIRIN EC 325 MG TABLET PO SCH (09:01)
[2020-12-21] MEDS: FUROSEMIDE 40 MG/4 ML VIAL IV SCH ×2 (09:02→16:04)
[2020-12-21] MEDS: ASCORBIC ACID 500 MG TABLET PO SCH ×2 (09:02→20:37)
[2020-12-21] MEDS: POTASSIUM CHLORIDE 20 MEQ TABLET PO SCH (09:02)
[2020-12-21] MEDS: carvediloL 6.25 MG TABLET PO SCH ×2 (09:02→20:37)
[2020-12-21] MEDS: ATORVASTATIN 40 MG TABLET PO SCH (20:37)
[2020-12-22] MEDS: ALBUTEROL/IPRATROPIUM 3 ML NEB RESP TX SCH ×4 (01:41→20:50)
[2020-12-22 05:16] LABS: Basophils % 0.3 % (0.0-0.8); Eosinophils # 0.3 10*3/uL (0.0-0.87); Eosinophils % 2.5 % (0.00-10.9); Hematocrit 36.8 VOL% (42.0-52.0); Hemoglobin 11.1 GM/DL (14.0-18.0); Immature Granulocytes % 3.3 %; Immature Granulocytes Absolute 0.38 #; Lymphocytes # 1.4 10*3/uL (1.4-4.0); Lymphocytes % 11.7 % (21.2-54.2); Mean Corpuscular HGB Conc 30.2 GM/DL (32-36); Mean Corpuscular Volume 100.3 FL (87-102); Mean Platelet Volume 10.7 FL (9.6-12.0); Monocytes % 6.9 % (1.7-12.7); Neutrophils % 75.3 % (38.7-73.9); Platelet Count 308 T/CUMM (130-400); Red Blood Count 3.67 MC/CUMM (3.8-5.5); Red Cell Distribution Width 13.4 % (9.3-17.3); White Blood Count 11.7 T/CUMM (4-12)
[2020-12-22 05:39] LABS: Albumin 3.1 G/DL (3.4-5.0); Bilirubin,Total 1.6 MG/DL (0.2-1.0); Calcium 8.9 MG/DL (8.5-10.1); Osmolality,Calculated 283.3 MOS/KG (273-304); Potassium 3.7 MMOL/L (3.5-5.1); Total Protein 6.8 G/DL (6.4-8.2)
[2020-12-22] MEDS: SODIUM CHLORIDE 0.9% 1,000 ML IV SCH (08:43)
[2020-12-22] MEDS: FUROSEMIDE 40 MG/4 ML VIAL IV SCH ×2 (08:44→09:16)
[2020-12-22] MEDS: carvediloL 6.25 MG TABLET PO SCH ×2 (09:13→20:41)
[2020-12-22] MEDS: hydroCHLOROthiazide 25 MG TABLET PO SCH (09:13)
[2020-12-22] MEDS: ASCORBIC ACID 500 MG TABLET PO SCH ×2 (09:13→20:41)
[2020-12-22] MEDS: POTASSIUM CHLORIDE 20 MEQ TABLET PO SCH (09:14)
[2020-12-22] MEDS: ASPIRIN EC 325 MG TABLET PO SCH (09:14)
[2020-12-22] MEDS: ATORVASTATIN 40 MG TABLET PO SCH (20:41)
[2020-12-22] MEDS ORDERED: ZALEPLON 5 MG CAPSULE PO PRN (23:50)
[2020-12-23] MEDS: ALBUTEROL/IPRATROPIUM 3 ML NEB RESP TX SCH ×2 (01:06→07:47)
[2020-12-23 04:42] LABS: Basophils % 0.3 % (0.0-0.8); Eosinophils # 0.4 10*3/uL (0.0-0.87); Eosinophils % 3.4 % (0.00-10.9); Hematocrit 30.3 VOL% (42.0-52.0); Hemoglobin 9.6 GM/DL (14.0-18.0); Immature Granulocytes % 2.5 %; Immature Granulocytes Absolute 0.28 #; Lymphocytes # 1.4 10*3/uL (1.4-4.0); Lymphocytes % 12.3 % (21.2-54.2); Mean Corpuscular HGB Conc 31.7 GM/DL (32-36); Mean Platelet Volume 11.1 FL (9.6-12.0); Monocytes % 8.8 % (1.7-12.7); Neutrophils % 72.7 % (38.7-73.9); Platelet Count 296 T/CUMM (130-400); Red Blood Count 3.19 MC/CUMM (3.8-5.5); Red Cell Distribution Width 13.4 % (9.3-17.3); White Blood Count 11.1 T/CUMM (4-12)
[2020-12-23 05:11] LABS: Calcium 8.1 MG/DL (8.5-10.1); Osmolality,Calculated 281.5 MOS/KG (273-304); Potassium 3.2 MMOL/L (3.5-5.1)
[2020-12-23] MEDS: hydroCHLOROthiazide 25 MG TABLET PO SCH (09:24)
[2020-12-23] MEDS: ASCORBIC ACID 500 MG TABLET PO SCH (09:24)
[2020-12-23] MEDS: ASPIRIN EC 325 MG TABLET PO SCH (09:24)
[2020-12-23] MEDS: carvediloL 6.25 MG TABLET PO SCH (09:24)
[2020-12-23] MEDS: POTASSIUM CHLORIDE 20 MEQ TABLET PO SCH (09:24)
[2020-12-23] MEDS: FUROSEMIDE 40 MG/4 ML VIAL IV SCH (09:25)
[2020-12-23 12:05] VITALS: BP 94/53
== END 2020-12-23 13:48 | disposition home or self-care (01) ==
LOC: EDBD → EDUNIT# → N.ED 01:53 → N.EDINP 01:53 → N.TELEN 04:34

== ENCOUNTER 2021-04-07 18:37 | Inpatient (IN) ==
[2021-04-07 19:20] LABS: Basophils % 0.3 % (0.0-0.8); Eosinophils # 0.2 10*3/uL (0.0-0.87); Eosinophils % 1.8 % (0.00-10.9); Hematocrit 41.3 VOL% (42.0-52.0); Hemoglobin 13.1 GM/DL (14.0-18.0); Immature Granulocytes % 0.4 %; Immature Granulocytes Absolute 0.04 #; Lymphocytes # 2.2 10*3/uL (1.4-4.0); Lymphocytes % 22.8 % (21.2-54.2); Mean Corpuscular HGB Conc 31.7 GM/DL (32-36); Mean Corpuscular Volume 86.4 FL (87-102); Mean Platelet Volume 12.5 FL (9.6-12.0); Monocytes % 6.8 % (1.7-12.7); Neutrophils % 67.9 % (38.7-73.9); Platelet Count 245 T/CUMM (130-400); Red Blood Count 4.78 MC/CUMM (3.8-5.5); Red Cell Distribution Width 16.6 % (9.3-17.3); White Blood Count 9.6 T/CUMM (4-12)
[2021-04-07 20:37] LABS: Albumin 3.2 G/DL (3.4-5.0); Bilirubin,Total 0.6 MG/DL (0.20-1.00); Calcium 8.6 MG/DL (8.5-10.1); Potassium 2.6 MMOL/L (3.5-5.1); Total Protein 6.1 G/DL (6.4-8.2)
[2021-04-07] MEDS ORDERED: FUROSEMIDE 100 MG/10 ML VIAL IV STA (20:50)
[2021-04-07] MEDS ORDERED: ALBUTEROL/IPRATROPIUM 3 ML NEB RESP TX ONE (20:55)
[2021-04-07] MEDS: ALBUTEROL/IPRATROPIUM 3 ML NEB RESP TX SCH (20:55)
[2021-04-07] MEDS ORDERED: POTASSIUM CHLORIDE 20 MEQ TABLET PO STA (21:03)
[2021-04-07] MEDS ORDERED: LABETALOL 20 MG/4 ML SYRINGE IV ONE (22:04)
[2021-04-07] MEDS ORDERED: LABETALOL 20 MG/4 ML SYRINGE IV STA (22:11)
[2021-04-07] MEDS ORDERED: GLUCAGON 1 MG VIAL IM PRN (22:57)
[2021-04-07] MEDS ORDERED: diphenhydrAMINE CAP 25 MG CAPSULE PO PRN (22:57)
[2021-04-07] MEDS ORDERED: CALCIUM CARBONATE CHEW 500 MG TABLET PO PRN (22:57)
[2021-04-07] MEDS ORDERED: guaiFENesin/DM ER 600-30 MG TABLET PO PRN (22:57)
[2021-04-07] MEDS ORDERED: ONDANSETRON 4 MG/2 ML VIAL IV PRN (22:57)
[2021-04-07] MEDS ORDERED: NICOTINE 21 MG/24 HR PATCH TRANSDERM PRN (22:57)
[2021-04-07] MEDS ORDERED: hydrALAZINE 20 MG/1 ML VIAL IV PRN (22:57)
[2021-04-07] MEDS ORDERED: ACETAMINOPHEN 325 MG TABLET PO PRN (22:57)
[2021-04-07] MEDS ORDERED: DEXTROSE 50% 25 GM/50 ML VIAL IV PRN (22:57)
[2021-04-08] MEDS: ALBUTEROL/IPRATROPIUM 3 ML NEB RESP TX SCH ×4 (02:43→20:10)
[2021-04-08 05:44] LABS: Calcium 8.5 MG/DL (8.5-10.1); Osmolality,Calculated 287.8 MOS/KG (273-304); Potassium 2.7 MMOL/L (3.5-5.1)
[2021-04-08] MEDS ORDERED: NITROGLYCERIN SL 0.4 MG TABLET SL PRN (07:12)
[2021-04-08] MEDS ORDERED: hydroCHLOROthiazide 25 MG TABLET PO SCH (09:00)
[2021-04-08] MEDS ORDERED: FUROSEMIDE 20 MG/2 ML VIAL IV SCH (09:00)
[2021-04-08] MEDS: carvediloL 6.25 MG TABLET PO SCH ×2 (09:27→16:20)
[2021-04-08] MEDS: ASPIRIN EC 325 MG TABLET PO SCH (09:27)
[2021-04-08] MEDS: OLMESARTAN 20 MG TABLET PO SCH (09:27)
[2021-04-08] MEDS: POTASSIUM CHLORIDE 20 MEQ TABLET PO PRN ×4 (09:27→16:21)
[2021-04-08] MEDS: FUROSEMIDE 20 MG/2 ML VIAL IV SCH (16:19)
[2021-04-08] MEDS: ATORVASTATIN 40 MG TABLET PO SCH (21:41)
[2021-04-09] MEDS ORDERED: TEMAZEPAM 15 MG CAPSULE PO ONE (00:20)
[2021-04-09] MEDS: ALBUTEROL/IPRATROPIUM 3 ML NEB RESP TX SCH ×4 (00:39→23:17)
[2021-04-09 05:05] LABS: Basophils % 0.4 % (0.0-0.8); Eosinophils # 0.2 10*3/uL (0.0-0.87); Eosinophils % 2.5 % (0.00-10.9); Hematocrit 36.6 VOL% (42.0-52.0); Hemoglobin 11.4 GM/DL (14.0-18.0); Immature Granulocytes % 0.3 %; Immature Granulocytes Absolute 0.02 #; Lymphocytes # 1.8 10*3/uL (1.4-4.0); Lymphocytes % 22.9 % (21.2-54.2); Mean Corpuscular HGB Conc 31.1 GM/DL (32-36); Mean Corpuscular Volume 88.6 FL (87-102); Mean Platelet Volume 12.6 FL (9.6-12.0); Neutrophils % 64.9 % (38.7-73.9); Platelet Count 193 T/CUMM (130-400); Red Blood Count 4.13 MC/CUMM (3.8-5.5); Red Cell Distribution Width 16.4 % (9.3-17.3); White Blood Count 7.7 T/CUMM (4-12)
[2021-04-09 05:31] LABS: Calcium 8.4 MG/DL (8.5-10.1); Osmolality,Calculated 289.8 MOS/KG (273-304); Potassium 3.4 MMOL/L (3.5-5.1)
[2021-04-09] MEDS: POTASSIUM CHLORIDE 20 MEQ TABLET PO PRN ×3 (06:16→12:52)
[2021-04-09] MEDS: ASPIRIN EC 325 MG TABLET PO SCH (09:15)
[2021-04-09] MEDS: OLMESARTAN 20 MG TABLET PO SCH (09:15)
[2021-04-09] MEDS: FUROSEMIDE 20 MG/2 ML VIAL IV SCH ×2 (09:57→16:29)
[2021-04-09] MEDS: carvediloL 6.25 MG TABLET PO SCH ×2 (09:57→16:29)
[2021-04-09] MEDS: ATORVASTATIN 40 MG TABLET PO SCH (21:28)
[2021-04-09] MEDS: TEMAZEPAM 15 MG CAPSULE PO SCH (21:29)
[2021-04-10] MEDS: ALBUTEROL/IPRATROPIUM 3 ML NEB RESP TX SCH ×4 (01:09→19:33)
[2021-04-10 05:56] LABS: Basophils % 0.3 % (0.0-0.8); Eosinophils # 0.3 10*3/uL (0.0-0.87); Eosinophils % 3.5 % (0.00-10.9); Hematocrit 35.6 VOL% (42.0-52.0); Hemoglobin 11.1 GM/DL (14.0-18.0); Immature Granulocytes % 0.3 %; Immature Granulocytes Absolute 0.02 #; Lymphocytes # 1.8 10*3/uL (1.4-4.0); Lymphocytes % 23.7 % (21.2-54.2); Mean Corpuscular HGB Conc 31.2 GM/DL (32-36); Mean Platelet Volume 12.3 FL (9.6-12.0); Monocytes % 7.6 % (1.7-12.7); Neutrophils % 64.6 % (38.7-73.9); Platelet Count 189 T/CUMM (130-400); Red Cell Distribution Width 16.2 % (9.3-17.3); White Blood Count 7.6 T/CUMM (4-12)
[2021-04-10 06:31] LABS: Osmolality,Calculated 289.8 MOS/KG (273-304)
[2021-04-10] MEDS ORDERED: POTASSIUM CHLORIDE 20 MEQ TABLET PO ONE (07:38)
[2021-04-10] MEDS: OLMESARTAN 20 MG TABLET PO SCH (08:40)
[2021-04-10] MEDS: carvediloL 6.25 MG TABLET PO SCH ×2 (08:41→17:20)
[2021-04-10] MEDS: FUROSEMIDE 20 MG/2 ML VIAL IV SCH ×2 (08:41→17:20)
[2021-04-10] MEDS: ASPIRIN EC 325 MG TABLET PO SCH (08:41)
[2021-04-10] MEDS ORDERED: FUROSEMIDE 40 MG/4 ML VIAL IV ONE (09:31)
[2021-04-10] MEDS: ENOXAPARIN 40 MG/0.4 ML SYRINGE SUBCUT SCH (12:45)
[2021-04-10] MEDS: ATORVASTATIN 40 MG TABLET PO SCH (20:39)
[2021-04-10] MEDS: TEMAZEPAM 15 MG CAPSULE PO SCH (20:40)
[2021-04-11] MEDS: ALBUTEROL/IPRATROPIUM 3 ML NEB RESP TX SCH ×2 (01:05→08:50)
[2021-04-11 04:00] LABS: Basophils % 0.4 % (0.0-0.8); Eosinophils # 0.3 10*3/uL (0.0-0.87); Eosinophils % 3.3 % (0.00-10.9); Hematocrit 35.9 VOL% (42.0-52.0); Hemoglobin 11.3 GM/DL (14.0-18.0); Immature Granulocytes % 0.3 %; Immature Granulocytes Absolute 0.02 #; Lymphocytes # 1.8 10*3/uL (1.4-4.0); Lymphocytes % 23.1 % (21.2-54.2); Mean Corpuscular HGB Conc 31.5 GM/DL (32-36); Mean Corpuscular Volume 87.6 FL (87-102); Mean Platelet Volume 12.1 FL (9.6-12.0); Neutrophils % 65.9 % (38.7-73.9); Platelet Count 196 T/CUMM (130-400); Red Cell Distribution Width 16.1 % (9.3-17.3)
[2021-04-11 04:08] LABS: Osmolality,Calculated 289.8 MOS/KG (273-304); Potassium 3.1 MMOL/L (3.5-5.1)
[2021-04-11] MEDS ORDERED: POTASSIUM CHLORIDE 20 MEQ TABLET PO ONE (07:11)
[2021-04-11] MEDS: FUROSEMIDE 20 MG/2 ML VIAL IV SCH (08:29)
[2021-04-11] MEDS: carvediloL 6.25 MG TABLET PO SCH (08:30)
[2021-04-11] MEDS: OLMESARTAN 20 MG TABLET PO SCH (08:30)
[2021-04-11] MEDS: ASPIRIN EC 325 MG TABLET PO SCH (08:30)
[2021-04-11] MEDS ORDERED: POTASSIUM CHLORIDE 20 MEQ TABLET PO SCH (09:00)
[2021-04-11 11:28] VITALS: BP 122/67
[2021-04-11] MEDS: ENOXAPARIN 40 MG/0.4 ML SYRINGE SUBCUT SCH (11:47)
== END 2021-04-11 13:15 | disposition home or self-care (01) | DRG 292 ==
LOC: N.ED 18:37 → N.EDINP 18:37 → N.TELES 23:33 → SUATTDRO 04-09 13:40
PROVIDERS: ADMIT Internal Medicine Geriatric Medicine; ATTEND Internal Medicine

== ENCOUNTER 2022-10-22 15:24 | Observation (INO) ==
[2022-10-22] MEDS ORDERED: ONDANSETRON 4 MG/2 ML VIAL IV PRN (18:08)
[2022-10-22] MEDS ORDERED: ACETAMINOPHEN 325 MG TABLET PO PRN (18:08)
[2022-10-22] MEDS ORDERED: GLUCAGON 1 MG VIAL IM PRN (18:08)
[2022-10-22] MEDS ORDERED: NITROGLYCERIN SL 0.4 MG TABLET SL PRN (18:13)
[2022-10-22] MEDS ORDERED: DEXTROSE 10% 250 ML BAG IV PRN (18:23)
[2022-10-22] MEDS ORDERED: TEMAZEPAM 15 MG CAPSULE PO PRN (18:34)
[2022-10-22] MEDS: LACTATED RINGERS 1,000 ML IV SCH (18:37)
[2022-10-22 20:03] LABS: Bilirubin,Urine Negative (Negative); Blood, Urine Negative (Negative); Glucose,Urine (UA) >1000 mg/dL (Negative); Ketones,Urine Negative (Negative); Nitrite,Urine Negative (Negative); Protein,Urine Negative (Negative); RBC,Urine 1 /HPF (0-4); Squamous Epithelial Cell,Urine Occasional /HPF (0-10); Urine Appearance Clear (Clear); Urine Color Yellow (Yellow); Urine Specific Gravity 1.015 (1.001-1.035)
[2022-10-22 20:04] LABS: Urine Urobilinogen 0.2 eU/dL (<2.0)
[2022-10-22] MEDS: ATORVASTATIN 40 MG TABLET PO SCH (21:12)
[2022-10-22] MEDS: ENOXAPARIN 40 MG/0.4 ML SYRINGE SUBCUT SCH (21:12)
[2022-10-22] MEDS: carvediloL 12.5 MG TABLET PO SCH (21:12)
[2022-10-22] MEDS: ASPIRIN EC 81 MG TABLET PO SCH (21:12)
[2022-10-22] MEDS: INSULIN LISPRO 100 UNIT/ML SUBCUT SCH (22:47)
[2022-10-23] MEDS: LACTATED RINGERS 1,000 ML IV SCH ×2 (05:25→15:37)
[2022-10-23 05:32] LABS: Basophils % 0.3 % (0.0-0.8); Eosinophils # 0.1 10*3/uL (0.0-0.87); Hematocrit 33.1 VOL% (42.0-52.0); Hemoglobin 10.9 GM/DL (14.0-18.0); Immature Granulocytes % 0.6 %; Immature Granulocytes Absolute 0.05 #; Lymphocytes # 1.7 10*3/uL (1.4-4.0); Lymphocytes % 21.4 % (21.2-54.2); Mean Corpuscular HGB Conc 32.9 GM/DL (32-36); Mean Corpuscular Volume 92.7 FL (87-102); Mean Platelet Volume 10.8 FL (9.6-12.0); Monocytes # 0.6 10*3/uL (0.11-0.8); Monocytes % 7.7 % (1.7-12.7); Platelet Count 201 T/CUMM (130-400); Red Blood Count 3.57 MC/CUMM (3.8-5.5); Red Cell Distribution Width 13.6 % (9.3-17.3); White Blood Count 7.96 T/CUMM (4-12)
[2022-10-23 05:56] LABS: Bilirubin,Total 0.5 MG/DL (0.20-1.00); Calcium 8.9 MG/DL (8.5-10.1); Osmolality,Calculated 291.4 MOS/KG (273-304); Risk Ratio 4.3; Thyroid Stimulating Hormone 0.955 uIU/ml (0.358-3.74); Total Protein 6.5 G/DL (6.4-8.2); VLDL Cholesterol 67.8 MG/DL
[2022-10-23 06:02] LABS: Potassium 2.5 MMOL/L (3.5-5.1)
[2022-10-23] MEDS ORDERED: POTASSIUM CHLORIDE 20 MEQ TABLET PO PRN (06:25)
[2022-10-23] MEDS ORDERED: POTASSIUM CHLORIDE 20 MEQ TABLET PO ONE (07:13)
[2022-10-23] MEDS ORDERED: metOLazone 5 MG TABLET PO SCH (09:00)
[2022-10-23] MEDS ORDERED: FUROSEMIDE 40 MG TABLET PO SCH (09:00)
[2022-10-23] MEDS ORDERED: POTASSIUM CHLORIDE 20 MEQ TABLET PO SCH (09:00)
[2022-10-23] MEDS: POTASSIUM CHLORIDE 20 MEQ TABLET PO SCH ×3 (09:06→21:41)
[2022-10-23] MEDS: carvediloL 12.5 MG TABLET PO SCH ×2 (09:06→21:41)
[2022-10-23] MEDS: DAPAGLIFLOZIN 10 MG TABLET PO SCH (09:06)
[2022-10-23] MEDS: PANTOPRAZOLE 40 MG TABLET PO SCH (09:07)
[2022-10-23] MEDS: INSULIN LISPRO 100 UNIT/ML SUBCUT SCH ×4 (09:07→21:41)
[2022-10-23] MEDS: ACETAMINOPHEN 325 MG TABLET PO PRN ×3 (13:33→21:40)
[2022-10-23] MEDS: ATORVASTATIN 40 MG TABLET PO SCH (21:41)
[2022-10-23] MEDS: ASPIRIN EC 81 MG TABLET PO SCH (21:41)
[2022-10-23] MEDS: ENOXAPARIN 40 MG/0.4 ML SYRINGE SUBCUT SCH (21:41)
[2022-10-24] MEDS: LACTATED RINGERS 1,000 ML IV SCH (01:09)
[2022-10-24 04:11] LABS: Basophils % 0.1 % (0.0-0.8); Eosinophils % 0.1 % (0.00-10.9); Hemoglobin 10.2 GM/DL (14.0-18.0); Immature Granulocytes % 0.6 %; Immature Granulocytes Absolute 0.06 #; Lymphocytes # 1.2 10*3/uL (1.4-4.0); Lymphocytes % 12.6 % (21.2-54.2); Mean Corpuscular HGB Conc 32.9 GM/DL (32-36); Mean Corpuscular Volume 93.1 FL (87-102); Monocytes # 0.8 10*3/uL (0.11-0.8); Monocytes % 8.6 % (1.7-12.7); Platelet Count 182 T/CUMM (130-400); Red Blood Count 3.33 MC/CUMM (3.8-5.5); Red Cell Distribution Width 13.6 % (9.3-17.3); White Blood Count 9.78 T/CUMM (4-12)
[2022-10-24 04:27] LABS: Calcium 8.6 MG/DL (8.5-10.1); Osmolality,Calculated 294.8 MOS/KG (273-304); Potassium 3.2 MMOL/L (3.5-5.1)
[2022-10-24] MEDS: DAPAGLIFLOZIN 10 MG TABLET PO SCH (08:11)
[2022-10-24] MEDS: INSULIN LISPRO 100 UNIT/ML SUBCUT SCH (08:11)
[2022-10-24] MEDS: ACETAMINOPHEN 325 MG TABLET PO PRN (08:11)
[2022-10-24] MEDS: carvediloL 12.5 MG TABLET PO SCH (08:12)
[2022-10-24] MEDS: PANTOPRAZOLE 40 MG TABLET PO SCH (08:12)
[2022-10-24] MEDS: POTASSIUM CHLORIDE 20 MEQ TABLET PO SCH (08:13)
[2022-10-24 08:24] VITALS: BP 116/74
[2022-10-24] MEDS ORDERED: COLCHICINE 0.6 MG CAPSULE PO ONE (08:43)
[2022-10-24] MEDS ORDERED: predniSONE 20 MG TABLET PO ONE (08:45)
== END 2022-10-24 11:19 | disposition home or self-care (01) ==
LOC: N.TELEN → SUATTDRO 17:19
PROVIDERS: ADMIT Internal Medicine; ATTEND Internal Medicine